=== PATIENT | male | born 1980 | race Hispanic/Latino ===

== ENCOUNTER 2016-11-29 17:38 | Emergency (ER) | payer OTHER ==
[2016-11-29] MEDS ORDERED: NORCO 5/325 PO ONE (20:17)
[2016-11-29] MEDS ORDERED: FLEXERIL PO ONE (20:17)
--- NOTE | 2016-11-29 20:17 | Emergency Department Report ---
ED Back Pain/Injury HPI - General Chief Complaint: Back Pain/Injury Stated Complaint: SEVERE BACK SPASMS Time Seen by Provider: 11/29/16 20:16 Source: patient, family Mode of arrival: Ambulatory Limitations: No Limitations - History of Present Illness Initial Comments: Patient here complaining of pain and spasm to his back on both sides to lower back. He said it started today. He said he has possible back injury after lifting in pain. Patient said he has 5 herniated disc and had surgery to his C- spine. He also had herniated disks from lower T-spine to C-spine palpation. He said [facility] and his [facility] was in March 2013. Denies any radiation of pain. Denies any loss of bowel or bladder control. Pain is located both sides of his lower back and is 9 out of 10 and achy . He's had back surgery times one and neck surgery times one. He has a history of chronic back, neck pain. Denies any urinary burning frequency or urgency. Denies any fever or chills or loss of bowel or bladder function. Temperature is 99.4 in triage. MD Complaint: back pain -: This afternoon Similar Symptoms Previously: Yes Place: home Radiation: none Severity: severe Severity scale (0 -10): 9 Quality: aching Consistency: constant Improves With: immobilization Worsens With: movement, walking Context: while lifting Associated Symptoms: denies: confusion, weakness, chest pain, numbness, difficulty walking, cough, difficulty urinating, diaphoresis, incontinence, fever/chills, constipation, headaches, abdominal pain, loss of appetite, malaise , nausea/vomiting, rash, seizure, shortness of breath, syncope Treatments Prior to Arrival: NSAIDS - Related Data Previous Rx's Medication Instructions Recorded Last Taken Type traMADol [Ultram] 50 mg PO Q6HR PRN #12 tablet 11/29/16 Unknown Rx Allergies Allergy/AdvReac Type Severity Reaction Status Date / Time No Known Allergies Allergy Unverified 11/29/16 17:54 ED Review of Systems ROS: Stated complaint: SEVERE BACK SPASMS Other details as noted in HPI Comment: All other systems reviewed and negative Constitutional: denies: chills, fever Eyes: denies: vision change Respiratory: no symptoms reported Cardiovascular: denies: chest pain, palpitations, edema, syncope Gastrointestinal: denies: abdominal pain, nausea, vomiting, diarrhea, constipation Genitourinary: denies: urgency, dysuria, frequency, hematuria, discharge, testicular pain, testicular mass Skin: denies: rash Neurological: denies: headache, weakness, numbness, paresthesias, confusion, abnormal gait, vertigo ED Past Medical Hx - Past Medical History Previous Medical History?: Yes Additional medical history: back pain, neck pain, Facial rash poss psoriasis - Surgical History Past Surgical History?: Yes Additional Surgical History: Back surgery x 1, Cervical spine surgery - Family History Family history: hypertension - Social History Smoking Status: Never Smoker Substance Use Type: Alcohol - Medications Home Medications: Home Medications Medication Instructions Recorded Confirmed Last Taken Type traMADol [Ultram] 50 mg PO Q6HR PRN #12 tablet 11/29/16 Unknown Rx ED Physical Exam - General Limitations: No Limitations General appearance: alert, in no apparent distress - Head Head exam: Present: atraumatic, normocephalic, normal inspection - Eye Eye exam: Present: normal appearance, PERRL, EOMI Pupils: Present: normal accommodation - ENT ENT exam: Present: normal exam, normal orophraynx, mucous membranes moist - Neck Neck exam: Present: normal inspection, full ROM. Absent: tenderness, meningismus, lymphadenopathy - Respiratory Respiratory exam: Present: normal lung sounds bilaterally. Absent: respiratory distress, chest wall tenderness - Cardiovascular Cardiovascular Exam: Present: regular rate, normal rhythm, normal heart sounds - GI/Abdominal GI/Abdominal exam: Present: soft, normal bowel sounds. Absent: distended, tenderness, guarding, rebound, rigid - Extremities Exam Extremities exam: Present: normal inspection, full ROM, normal capillary refill. Absent: tenderness, pedal edema, joint swelling, calf tenderness - Back Exam Back exam: Present: normal inspection, full ROM. Absent: tenderness, CVA tenderness (R), CVA tenderness (L), muscle spasm, paraspinal tenderness, vertebral tenderness, rash noted - Expanded Back Exam Expanded Back exam: Absent: saddle anesthesia Back exam: Negative Straight Leg Raising: Left, Right - Neurological Exam Neurological exam: Present: alert, oriented X3, normal gait, reflexes normal. Absent: motor sensory deficit - Psychiatric Psychiatric exam: Present: normal affect, normal mood - Skin Skin exam: Present: warm, dry, intact, normal color. Absent: rash ED Course Vital Signs 11/29/16 17:54 Temperature 99.4 F Pulse Rate 95 H Respiratory 20 Rate Blood Pressure 146/92 O2 Sat by Pulse 97 Oximetry - Reevaluation(s) Reevaluation #1: 11/29/16 22:39 Patient received Flexeril and Bennett in emergency room for lower back pain ED Medical Decision Making - Lab Data Lab Results 11/29/16 Range/Units 20:00 Urine Color Yellow (Yellow) Urine Turbidity Clear (Clear) Urine pH 6.0 (5.0-7.0) Ur Specific [place] 1.023 (1.003-1.030) Urine Protein <15 mg/dl (Negative) mg/dL Urine Glucose (UA) Neg (Negative) mg/dL Urine Ketones Neg (Negative) mg/dL Urine Blood Neg (Negative) Urine Nitrite Neg (Negative) Urine Bilirubin Neg (Negative) Urine Urobilinogen 4.0 (<2.0) mg/dL Ur Leukocyte Esterase Neg (Negative) Urine WBC (Auto) < 1.0 (0.0-6.0) /HPF Urine RBC (Auto) 2.0 (0.0-6.0) /HPF - Medical Decision Making ED course: Patient with acute exacerbation of chronic back pain. He said his back got aggravated today while he was lifting paint. He has a history of chronic back pain and neck pain. He said he's been managed [facility] but he does not have a orthopedic doctor. Patient was given Bennett 5/325 2 tablets and Flexeril 10 mg by mouth in emergency room. I discussed the patient that he needs to go back to the [facility] and also see Dr. Crane who is orthopedic doctor to manage his chronic back pain. Patient was understanding of discharge diagnosis and treatment plan and discharged home with his family in stable condition with prescription for Ultram and to continue his Flexeril as previously ordered his doctor. Critical care attestation.: If time is entered above; I have spent that time in minutes in the direct care of this critically ill patient, excluding procedure time. ED Disposition Clinical Impression: Acute exacerbation of chronic low back pain Disposition: DC-01 TO HOME OR SELFCARE Is pt being admited?: No Does the pt Need Aspirin: No Condition: Stable Instructions: Chronic Back Pain (ED) Additional Instructions: Please follow up at the [facility] that [facility]'ll [facility] to. follow-up with orthopedic doctor as discussed. Prescriptions: traMADol [Ultram] 50 mg PO Q6HR PRN #12 tablet PRN Reason: Pain Referrals: PRIMARY CARE, [Primary Care Provider] - 12/03/16 DIMPLE CRANE MD [Staff Physician] - 3-5 Days
[2016-11-29 20:31] LABS: Bilirubin,Urine NEG (Negative); Blood,Urine NEG (Negative); Ketones,Urine NEG (Negative); Leukocyte Esterase,Urine NEG (Negative); Nitrite,Urine NEG (Negative); Protein,Urine <15 mg/dL mg/dL (Negative); WBC,Urine < 1.0 /HPF (0.0-6.0)
[2016-11-29 22:55] VITALS: BP 150/92
== END 2016-11-29 22:54 | disposition home or self-care (01) ==
LOC: ED 17:38
DX: M54.5 Low back pain (principal); G89.29 Other chronic pain
CPT/HCPCS: 81001; 99283

== ENCOUNTER 2017-10-10 19:08 | Emergency (ER) | payer OTHER ==
--- NOTE | 2017-10-10 23:34 | Emergency Department Report ---
ED General Adult HPI - General Chief complaint: Extremity Problem,Nontraumatic Stated complaint: RIGHT LEG PAIN Time Seen by Provider: 10/10/17 23:24 Source: patient, RN notes reviewed Mode of arrival: Ambulatory Limitations: Physical Limitation - History of Present Illness Initial comments: This is a 36-year-old male who was previously unknown to this provider, has a past medical history of sciatica, distant history of navicular fracture with retained floating bony fragments, status post operative repair of said navicular fracture at the [facility] on September [address] Montgomery. Patient presents to the ER with a complaint of calf spasms and tightness. The pain is intermittent. It does not radiate anywhere. He does not have exacerbating or relieving factors. He denies headache, neck pain, chest pain, abdominal pain or shortness of breath. He denies urinary and fecal retention and incontinence. The patient further reports an intermittent history of sciatica, and reports that his sciatica in the past has occasionally presented like this. He reports that gabapentin does improve his symptoms occasionally. -: Gradual Location: right, lower extremity Radiation: non-radiation Quality: aching Consistency: intermittent Improves with: none Worsens with: none Associated Symptoms: denies other symptoms. denies: confusion, chest pain, cough, diaphoresis, fever/chills, headaches, loss of appetite, malaise, nausea/ vomiting, rash, seizure, shortness of breath, syncope, weakness - Related Data Previous Rx's Medication Instructions Recorded Last Taken Type traMADol [Ultram] 50 mg PO Q6HR PRN #12 tablet 11/29/16 Unknown Rx Allergies Allergy/AdvReac Type Severity Reaction Status Date / Time No Known Allergies Allergy Unverified 11/29/16 17:54 ED Review of Systems ROS: Stated complaint: RIGHT LEG PAIN Other details as noted in HPI Comment: All other systems reviewed and negative ED Past Medical Hx - Past Medical History Previous Medical History?: No Additional medical history: back pain, neck pain, Facial rash poss psoriasis - Surgical History Past Surgical History?: No Additional Surgical History: Back surgery x 1, Cervical spine surgery - Social History Smoking Status: Never Smoker Substance Use Type: None - Medications Home Medications: Home Medications Medication Instructions Recorded Confirmed Last Taken Type traMADol [Ultram] 50 mg PO Q6HR PRN #12 tablet 11/29/16 Unknown Rx ED Physical Exam - General Limitations: No Limitations, Physical Limitation General appearance: alert, in no apparent distress - Head Head exam: Present: atraumatic, normocephalic - Eye Eye exam: Present: normal appearance, EOMI. Absent: nystagmus - ENT ENT exam: Present: normal exam, normal orophraynx, mucous membranes moist, normal external ear exam - Neck Neck exam: Present: normal inspection, full ROM - Respiratory Respiratory exam: Present: normal lung sounds bilaterally. Absent: respiratory distress - Cardiovascular Cardiovascular Exam: Present: regular rate, normal rhythm, normal heart sounds. Absent: bradycardia, tachycardia, irregular rhythm, systolic murmur, diastolic murmur, rubs, gallop - GI/Abdominal GI/Abdominal exam: Present: soft, normal bowel sounds. Absent: distended, tenderness, guarding, rebound, rigid, pulsatile mass - Rectal Rectal exam: Present: deferred - Extremities Exam Extremities exam: Present: normal inspection, full ROM (full range of motion in the left lower extremity. Full range of motion in the right hip, right knee.), normal capillary refill, other (there is no obvious swelling proximally or distally. The patient is able to wiggle the bilateral lower extremity toes. There is appropriate capillary refill. There is appropriate distal sensation.) . Absent: pedal edema, joint swelling, calf tenderness (the left Is nontender. The right calf is in a cast.) - Back Exam Back exam: Present: normal inspection, full ROM. Absent: paraspinal tenderness , vertebral tenderness - Neurological Exam Neurological exam: Present: alert, oriented X3, CN II-XII intact, normal gait ( the patient is walking with crutches.), other (Extraocular movements intact. Tongue midline. No facial droop. Facial sensation intact to light touch in the V1, V2, V3 distribution bilaterally. 5 and 5 strength in 4 extremities.. Sensation is intact to light touch in 4 extremities.). Absent: motor sensory deficit - Psychiatric Psychiatric exam: Present: normal affect, normal mood - Skin Skin exam: Present: warm, dry, intact, normal color. Absent: rash ED Course Vital Signs 10/10/17 19:20 Temperature 98 F Pulse Rate 103 H Respiratory 20 Rate Blood Pressure 150/97 O2 Sat by Pulse 98 Oximetry ED Medical Decision Making - Lab Data Vital Signs 10/10/17 19:20 Temperature 98 F Pulse Rate 103 H Respiratory 20 Rate Blood Pressure 150/97 O2 Sat by Pulse 98 Oximetry - Medical Decision Making Differential diagnosis, including but not limited to: DVT, spasm, sciatica, muscular pain Assessment and plan: 36-year-old male with a right lower extremity cast. His distal toes are pink, warm, well perfused. There is no pain with passive range of motion of the great toe. There is no obvious swelling proximally or distally. Patient presented after hours, unable to obtain right lower extremity DVT study. His tachycardia is improved and resolved on my physical exam. Patient is instructed to follow-up with his outpatient orthopedist, and we will obtain outpatient DVT study. Given recent surgery, low probability for DVT, I will withhold systemic anticoagulation. There is no clinical indication or physical exam finding to suggest epidural compression syndrome. Critical care attestation.: If time is entered above; I have spent that time in minutes in the direct care of this critically ill patient, excluding procedure time. ED Disposition Clinical Impression: Right leg pain Disposition: DC-01 TO HOME OR SELFCARE Is pt being admited?: No Does the pt Need Aspirin: No Condition: Stable Additional Instructions: Continue current outpatient medications. Follow-up with your orthopedist within the next 3-4 days. Contact the ultrasound department at [phone] after 8:00 AM to arrange test , make certain to bring this requisition form with you. Return to the ER right away with new pain, worsened pain, migration of pain, fevers, chills, lethargy, irritability, projectile vomiting, change in mental status, confusion, inability to tolerate liquid feeds. Referrals: ADDIS MONTGOMERY DPM [Primary Care Provider] - 3-5 Days
[2017-10-10 23:47] VITALS: BP 148/95
== END 2017-10-10 23:46 | disposition home or self-care (01) ==
LOC: ED 19:08
DX: M79.604 Pain in right leg (principal)
CPT/HCPCS: 99281